=== PATIENT | female | born 1950 | race Caucasian/White ===

== ENCOUNTER 2023-11-10 09:46 | Inpatient (IN) | payer OTHER, MEDICAID ==
[~2023-11-10] VITALS: Ht 165.1 cm; Wt 57.6 kg
[2023-11-10 10:06] VITALS: BP_SYST 102; PULSE 18; RESP 16; TEMP 96.8; O2SAT 98
[2023-11-10 10:14] LABS: BASOPHILS # (AUTO) 0.1 K/uL (0.0-0.2); BASOPHILS % (AUTO) 0.5 % (0.0-2.0); EOSINOPHILS # (AUTO) 0.1 K/uL (0.0-0.4); EOSINOPHILS % (AUTO) 0.8 % (0.0-4.0); HEMOGLOBIN 13.6 g/dL (12.0-16.0); LYMPHOCYTES # (AUTO) 1.3 K/uL (1.0-5.5); LYMPHOCYTES % (AUTO) 12.3 % (20.5-51.5); MEAN CORPUSCULAR HEMOGLOBIN 31 pg (27-31); MEAN CORPUSCULAR HGB CONC 35 % (32-36); MEAN CORPUSCULAR VOLUME 88 fL (79.0-98.0); MONOCYTES # (AUTO) 0.7 K/uL (0.0-1.0); MONOCYTES % (AUTO) 6.2 % (1.7-9.3); NEUTROPHILS # (AUTO) 8.8 K/uL (1.8-7.7); NEUTROPHILS % (AUTO) 80.2 % (40.0-70.0); PLATELET COUNT (AUTO) 338 K/uL (130-430); RED BLOOD CELL COUNT(AUTO) 4.43 MIL/uL (4.2-6.2); RED CELL DISTRIBUTION WIDTH 13.9 % (9.0-15.0); WHITE BLOOD COUNT (AUTO) 10.9 K/uL (4.8-10.8)
[2023-11-10] MEDS: NACL 0.9% 1,000 ML IV ONE (10:23)
[2023-11-10 10:26] LABS: ALANINE AMINOTRANSFERASE 50 U/L (12-78); ANION GAP 17 (5-15); ASPARTATE AMINOTRANSFERASE 43 U/L (10-37); BILIRUBIN,DIRECT 0.2 mg/dL (0.0-0.3); CALCIUM 9.1 mg/dL (8.4-11.0); CARBON DIOXIDE 18 mmol/L (23-29); CHLORIDE 94 mmol/L (98-107); CREATININE 2.64 mg/dL (0.55-1.30); GLUCOSE 302 mg/dL (74-106); SODIUM SERUM 129 mmol/L (136-145); TOTAL BILIRUBIN 0.8 mg/dL (0.0-1.0); TOTAL PROTEIN, SERUM 9.3 g/dL (6.4-8.3); UREA NITROGEN, BLOOD 30 mg/dL (8-21)
[2023-11-10] MEDS: ONDANSETRON HCL 4 MG/2 ML VIAL IVP ONE (10:46)
[2023-11-10] MEDS: MORPHINE 2 MG/ML INJ. SYRINGE IVP ONE (11:01)
[2023-11-10 13:00] VITALS: BP_SYST 134; PULSE 81; RESP 18; TEMP 98.1
[2023-11-10] MEDS: NACL 0.9% 1,000 ML IV SCH (13:22)
[2023-11-10] MEDS ORDERED: DOCUSATE SODIUM 100 MG CAPSULE PO PRN (13:30)
[2023-11-10] MEDS ORDERED: MORPHINE 2 MG/ML INJ. SYRINGE IVP PRN (13:30)
[2023-11-10] MEDS ORDERED: POTASSIUM CHLORIDE 20 MEQ TABLET.ER PO PRN (13:30)
[2023-11-10] MEDS ORDERED: MAGNESIUM SULFATE 50 ML IV PRN (13:30)
[2023-11-10] MEDS ORDERED: ACETAMINOPHEN 325 MG TABLET PO PRN (13:30)
[2023-11-10] MEDS ORDERED: NALOXONE HCL 2 MG/2 ML SYR IVP PRN ×2 (13:30)
[2023-11-10] MEDS ORDERED: LORazepam 2 MG/ML VIAL IVP PRN (13:30)
[2023-11-10] MEDS ORDERED: ACETAMINOPHEN 500 MG TABLET PO PRN ×2 (13:30)
[2023-11-10] MEDS ORDERED: MUPIROCIN 2% TOPICAL OINTMENT 22 GM NS PRN (13:30)
[2023-11-10 13:44] LABS: BILIRUBIN,URINE NEGATIVE (NEGATIVE); BLOOD, URINE NEGATIVE (NEGATIVE); CLARITY/URINE CLEAR (CLEAR); COLOR,URINE YELLOW (YELLOW); GLUCOSE,URINE TRACE (NEGATIVE); KETONES,URINE NEGATIVE (NEGATIVE); LEUKOCYTE ESTERASE ,URINE 1+ (NEGATIVE); NITRITE, URINE NEGATIVE (NEGATIVE); PROTEIN URINE 1+ (NEGATIVE); UROBILINOGEN,URINE 0.2 (0.2-1.0)
[2023-11-10 14:10] LABS: BACTERIA,URINE MODERATE /HPF (None Seen); RBC,URINE NONE SEEN /HPF (0-3)
[2023-11-10 14:57] VITALS: O2SAT 98
[2023-11-10 15:27] LABS: ANION GAP 14 (5-15); CALCIUM 8.5 mg/dL (8.4-11.0); CARBON DIOXIDE 20 mmol/L (23-29); CHLORIDE 100 mmol/L (98-107); CREATININE 2.26 mg/dL (0.55-1.30); GLUCOSE 177 mg/dL (74-106); POTASSIUM 5.2 mmol/L (3.5-5.1); SODIUM SERUM 134 mmol/L (136-145); UREA NITROGEN, BLOOD 28 mg/dL (8-21)
[2023-11-10 16:20] VITALS: BP_SYST 111; PULSE 86; RESP 16; TEMP 97.4; O2SAT 100
[2023-11-10] MEDS: INSULIN REGULAR, HUMAN 100 UNITS/ML, 3 ML VIAL (humuLIN R) SUBCUT PRN (16:36)
[2023-11-10] MEDS: SODIUM POLYSTYRENE SULFONATE 15 GM/60 ML UDBTL PO ONE (16:37)
[2023-11-10] MEDS ORDERED: VITD2000 PO (17:50)
[2023-11-10] MEDS ORDERED: DAPA5TAB PO (17:50)
[2023-11-10] MEDS ORDERED: AMLO2.5T2 PO (17:50)
[2023-11-10] MEDS ORDERED: DOCU-144 PO (17:50)
[2023-11-10] MEDS ORDERED: ATOR20TA64 PO (17:50)
[2023-11-10] MEDS ORDERED: FAMO20TA8 PO (17:50)
[2023-11-10] MEDS ORDERED: LOSA-415 PO (17:50)
[2023-11-10 19:00] VITALS: O2SAT 98
[2023-11-10 20:00] VITALS: BP_SYST 144; PULSE 87; RESP 16; TEMP 98; O2SAT 100
[2023-11-10] MEDS: HEPARIN SODIUM,PORCINE 5,000 UNITS/ML VIAL SUBCUT SCH (22:22)
[2023-11-10] MEDS: ZOLPIDEM TARTRATE 5 MG TABLET PO PRN (22:27)
[2023-11-10] MEDS: MORPHINE 2 MG/ML INJ. SYRINGE IVP PRN (22:29)
[2023-11-11 06:04] LABS: BASOPHILS % (AUTO) 0.5 % (0.0-2.0); EOSINOPHILS # (AUTO) 0.4 K/uL (0.0-0.4); EOSINOPHILS % (AUTO) 4.2 % (0.0-4.0); HEMATOCRIT 33.1 % (36-48); HEMOGLOBIN 11.7 g/dL (12.0-16.0); LYMPHOCYTES # (AUTO) 2.1 K/uL (1.0-5.5); LYMPHOCYTES % (AUTO) 22.5 % (20.5-51.5); MEAN CORPUSCULAR HEMOGLOBIN 31 pg (27-31); MEAN CORPUSCULAR HGB CONC 35 % (32-36); MEAN CORPUSCULAR VOLUME 87 fL (79.0-98.0); MONOCYTES % (AUTO) 10.2 % (1.7-9.3); NEUTROPHILS # (AUTO) 5.9 K/uL (1.8-7.7); NEUTROPHILS % (AUTO) 62.6 % (40.0-70.0); PLATELET COUNT (AUTO) 260 K/uL (130-430); RED CELL DISTRIBUTION WIDTH 13.8 % (9.0-15.0); WHITE BLOOD COUNT (AUTO) 9.4 K/uL (4.8-10.8)
[2023-11-11 06:29] LABS: ANION GAP 13 (5-15); CALCIUM 8.2 mg/dL (8.4-11.0); CARBON DIOXIDE 19 mmol/L (23-29); CHLORIDE 106 mmol/L (98-107); CREATININE 1.89 mg/dL (0.55-1.30); GLUCOSE 144 mg/dL (74-106); POTASSIUM 4.8 mmol/L (3.5-5.1); SODIUM SERUM 138 mmol/L (136-145); UREA NITROGEN, BLOOD 21 mg/dL (8-21)
[2023-11-11 06:45] VITALS: BP_SYST 129; PULSE 89; RESP 16; TEMP 98; O2SAT 100
[2023-11-11 08:00] VITALS: BP_SYST 132; PULSE 85; RESP 18; TEMP 99; O2SAT 96
[2023-11-11] MEDS: cefTRIAXone 1 GM in D5W 50 ML IV ONE (11:21)
[2023-11-11 12:00] VITALS: BP_SYST 133; PULSE 93; RESP 18; TEMP 97.7; O2SAT 97
[2023-11-11 17:40] VITALS: BP_SYST 125; PULSE 75; RESP 18; TEMP 98.1; O2SAT 97
[2023-11-11 20:00] VITALS: BP_SYST 140; PULSE 88; RESP 18; TEMP 97.6; O2SAT 98
[2023-11-11] MEDS: ATORVASTATIN 20 MG TABLET PO SCH (20:40)
[2023-11-11] MEDS: ONDANSETRON HCL 4 MG/2 ML VIAL IVP PRN (21:50)
[2023-11-12 02:09] VITALS: BP_SYST 135; PULSE 70; RESP 18; TEMP 98.4; O2SAT 100
[2023-11-12 05:17] LABS: BASOPHILS % (AUTO) 0.5 % (0.0-2.0); EOSINOPHILS # (AUTO) 0.4 K/uL (0.0-0.4); EOSINOPHILS % (AUTO) 4.5 % (0.0-4.0); HEMATOCRIT 31.2 % (36-48); HEMOGLOBIN 10.8 g/dL (12.0-16.0); LYMPHOCYTES % (AUTO) 21.5 % (20.5-51.5); MEAN CORPUSCULAR HEMOGLOBIN 30 pg (27-31); MEAN CORPUSCULAR HGB CONC 35 % (32-36); MEAN CORPUSCULAR VOLUME 87 fL (79.0-98.0); MONOCYTES % (AUTO) 11.1 % (1.7-9.3); NEUTROPHILS # (AUTO) 5.8 K/uL (1.8-7.7); NEUTROPHILS % (AUTO) 62.4 % (40.0-70.0); PLATELET COUNT (AUTO) 250 K/uL (130-430); RED BLOOD CELL COUNT(AUTO) 3.58 MIL/uL (4.2-6.2); RED CELL DISTRIBUTION WIDTH 13.6 % (9.0-15.0); WHITE BLOOD COUNT (AUTO) 9.2 K/uL (4.8-10.8)
[2023-11-12 05:36] LABS: ANION GAP 13 (5-15); CALCIUM 7.9 mg/dL (8.4-11.0); CARBON DIOXIDE 19 mmol/L (23-29); CHLORIDE 107 mmol/L (98-107); CREATININE 1.41 mg/dL (0.55-1.30); GLUCOSE 111 mg/dL (74-106); POTASSIUM 3.6 mmol/L (3.5-5.1); SODIUM SERUM 139 mmol/L (136-145); UREA NITROGEN, BLOOD 16 mg/dL (8-21)
[2023-11-12 08:03] VITALS: BP_SYST 134; PULSE 78; RESP 17; TEMP 97.8; O2SAT 97
[2023-11-12] MEDS ORDERED: CIPR250T4 PO (08:56)
[2023-11-12] MEDS ORDERED: DAPAGLIFLOZIN PROPANEDIOL NF 5 MG TABLET PO SCH (09:00)
[2023-11-12] MEDS: amLODIPine BESYLATE 5 MG TABLET PO SCH (09:08)
[2023-11-12] MEDS: EMPAGLIFLOZIN 10 MG TABLET PO SCH (09:08)
[2023-11-12] MEDS: cefTRIAXone 1 GM in D5W 50 ML IV SCH (09:16)
[2023-11-12 12:30] VITALS: BP_SYST 132; PULSE 84; RESP 16; TEMP 97.6; O2SAT 96
[2023-11-12 13:33] VITALS: BP_SYST 100; PULSE 112; RESP 18; TEMP 97.6; O2SAT 95
[2023-11-12 15:20] VITALS: BP_SYST 100; PULSE 112; RESP 18; TEMP 97.7; O2SAT 95
== END 2023-11-12 18:00 | disposition home or self-care (01) | DRG 871 ==
LOC: SED 09:46 → STU 12:19 → SMU 11-11 23:48
PROVIDERS: ADMIT General Practice; ATTEND General Practice
DX: A41.9 Sepsis, unspecified organism (principal); N17.0 Acute kidney failure with tubular necrosis; N39.0 Urinary tract infection, site not specified; A08.4 Viral intestinal infection, unspecified; E11.22 Type 2 diabetes mellitus with diabetic chronic kidney disease; E11.65 Type 2 diabetes mellitus with hyperglycemia; E78.5 Hyperlipidemia, unspecified; E87.5 Hyperkalemia; I12.9 Hypertensive chronic kidney disease with stage 1 through stage 4 chronic kidney disease, or unspecified chronic kidney disease; N18.9 Chronic kidney disease, unspecified; Z90.49 Acquired absence of other specified parts of digestive tract
CPT/HCPCS: 36415; 80048; 80076; 81000; 81001; 81015; 82948; 83037; 83735; 84484; 85025; 87086; 87186; 87230; 93005; 96361; 96374; 96375; 99285; G0378; J0696; J1644; J2270; J2405; J7060